=== PATIENT | female | born 1985 | race Caucasian/White ===

== ENCOUNTER 2016-10-22 00:14 | Emergency (ER) | payer MEDICAID ==
[~2016-10-22] VITALS: Ht 180.3 cm; Wt 81.6 kg
[2016-10-22] MEDS ORDERED: IV NORMAL SALINE 1000 ML BAG IV ONE (00:45)
[2016-10-22] MEDS ORDERED: ONDANSETRON 4 MG/2 ML VIAL IV ONE (00:45)
[2016-10-22] MEDS ORDERED: ONDANSETRON 4 MG/2 ML VIAL ONE (00:54)
[2016-10-22 01:00] LABS: HEMOGLOBIN 11.9 g/dL (12.0-16.0); MEAN CORPUSCULAR HEMOGLOBIN 25.7 uug (27.0-31.0); MEAN CORPUSCULAR HGB CONC 32 g/dL (32.0-37.0); MEAN CORPUSCULAR VOLUME 79.8 fL (81.0-99.0); PLATELET COUNT (AUTO) 245 K/uL (150-450); RED BLOOD CELL COUNT(AUTO) 4.63 MIL/uL (4.20-5.40); RED CELL DISTRIBUTION WIDTH 14.3 % (11.5-14.5); WHITE BLOOD COUNT (AUTO) 10.2 K/uL (4.0-11.2)
[2016-10-22 01:05] LABS: CALCIUM 8.8 mg/dL (8.5-10.1); CREATININE 0.8 mg/dL (0.6-1.3); HYPOCHROMASIA 1+; LYMPHOCYTES % (MANUAL) 4 % (20-40); MONOCYTES % (MANUAL) 6 % (2-10); NEUTROPHILS % (MANUAL) 90 % (42-75); PLATELET ESTIMATE ADEQUATE; POTASSIUM 3.3 mmol/L (3.5-5.1)
[2016-10-22 01:06] LABS: ANISOCYTOSIS 1+
[2016-10-22 01:11] LABS: BILIRUBIN,DIRECT 0.2 mg/dL (0.0-0.2); BILIRUBIN,TOTAL 0.9 mg/dL (0.2-1.0); TOTAL PROTEIN, SERUM 7.3 g/dL (6.4-8.2)
[2016-10-22] MEDS ORDERED: METOCLOPRAMIDE HCL 10 MG/2 ML VIAL ONE (01:27)
[2016-10-22] MEDS ORDERED: METOCLOPRAMIDE HCL 10 MG/2 ML VIAL IV ONE (01:30)
[2016-10-22] MEDS ORDERED: POTASSIUM CHLORIDE 20 MEQ TAB.PRT.SR PO ONE (01:45)
[2016-10-22] MEDS ORDERED: POTASSIUM CHLORIDE 20 MEQ TAB.PRT.SR ONE (01:53)
[2016-10-22] MEDS ORDERED: METRONIDAZOLE 500 MG/NS 100 ML PIGGYBACK IV ONE (02:15)
[2016-10-22] MEDS ORDERED: PIPERACILLIN SODIUM/TAZOBACTAM 3.375 G in IV DEXTROSE 5% 50 ML IV ONE (02:15)
--- NOTE | 2016-10-22 02:27 | NUR ---
Patient discharged to home in stable conditon. Written and verbal after care instructions given. Patient verbalizes understanding of instructions.
== END 2016-10-22 02:28 | disposition home or self-care (01) ==
LOC: ER 00:17
DX: R11.2 Nausea with vomiting, unspecified (principal); R10.84 Generalized abdominal pain
CPT/HCPCS: 36415; 80048; 80076; 83690; 84703; 85025; 93005; 96361; 96374; 96375; 99285; A4663; J2405; J2765; J7030

== ENCOUNTER 2017-07-12 18:07 | Emergency (ER) | payer MEDICAID ==
[~2017-07-12] VITALS: Ht 180.3 cm; Wt 74.8 kg
[2017-07-12 19:01] LABS: BASOPHILS # (AUTO) 0.1 K/uL (0.0-8.0); BASOPHILS % (AUTO) 0.7 % (0.0-2.0); EOSINOPHILS # (AUTO) 0.2 K/uL (0.0-0.7); EOSINOPHILS % (AUTO) 2.6 % (0.0-7.0); HEMATOCRIT 36.3 % (31.2-41.9); HEMOGLOBIN 11.9 g/dL (10.9-14.3); LYMPHOCYTES % (AUTO) 26.8 % (20.5-51.5); MEAN CORPUSCULAR HEMOGLOBIN 28.8 uug (24.7-32.8); MEAN CORPUSCULAR HGB CONC 33 g/dL (32.3-35.6); MEAN CORPUSCULAR VOLUME 87.5 fL (75.5-95.3); MONOCYTES # (AUTO) 0.6 K/uL (2.0-10.0); MONOCYTES % (AUTO) 7.6 % (0.0-11.0); NEUTROPHILS # (AUTO) 4.6 K/uL (1.8-8.9); NEUTROPHILS % (AUTO) 62.3 % (38.5-71.5); PLATELET COUNT (AUTO) 255 K/uL (179-408); RED BLOOD CELL COUNT(AUTO) 4.14 MIL/uL (3.63-4.92); WHITE BLOOD COUNT (AUTO) 7.4 K/uL (3.8-11.8)
[2017-07-12] MEDS: IV NORMAL SALINE 1000 ML BAG IV ONE (19:02)
[2017-07-12] MEDS: ONDANSETRON 4 MG/2 ML VIAL IV ONE (19:03)
[2017-07-12] MEDS: HYDROMORPHONE 1 MG/1 ML DISP.SYRIN IV ONE ×2 (19:03→19:51)
[2017-07-12] MEDS ORDERED: ONDANSETRON 4 MG/2 ML VIAL ONE (19:04)
[2017-07-12] MEDS ORDERED: HYDROMORPHONE 4 MG/1 ML DISP.SYRIN ONE (19:05)
--- NOTE | 2017-07-12 19:07 | NUR ---
Pt presents to ED with a c/o lower quadrant abd pain. + nausea. denies vomiting. pain relieved s/p dilaudid. IVF infusing. will continue to monitor.
[2017-07-12 19:11] LABS: CREATININE 0.9 mg/dL (0.6-1.3); POTASSIUM 3.8 mmol/L (3.5-5.1)
[2017-07-12 19:17] LABS: BILIRUBIN,DIRECT 0.1 mg/dL (0.0-0.2); BILIRUBIN,TOTAL 0.3 mg/dL (0.2-1.0); TOTAL PROTEIN, SERUM 6.6 g/dL (6.4-8.2)
[2017-07-12] MEDS ORDERED: MORPHINE SULFATE 4 MG/1 ML DISP.SYRIN IV ONE (19:30)
[2017-07-12] MEDS ORDERED: NORMAL SALINE FLUSH 10 ML DISP.SYRIN ONE (19:37)
[2017-07-12] MEDS ORDERED: IV NORMAL SALINE 250 ML IV ONE (19:37)
[2017-07-12] MEDS ORDERED: IOHEXOL 300MG/ML 100 ML INFUS..BTL ONE (19:37)
--- NOTE | 2017-07-12 19:50 | NUR ---
DR YATES SPOKE WITH PATIENT WILL BE OK HOME.
[2017-07-12] MEDS ORDERED: MORPHINE SULFATE 4 MG/1 ML DISP.SYRIN ONE ×2 (19:53→22:12)
[2017-07-12 20:07] LABS: *BILIRUBIN,URIN NEGATIVE (NEGATIVE); *BLOOD, URINE NEGATIVE (NEGATIVE); *CLARITY,URINE CLEAR (CLEAR); *COLOR,URINE YELLOW (YELLOW); *KETONES,URINE NEGATIVE (NEGATIVE); *PROTEIN,URINE NEGATIVE (NEGATIVE); *UROBILINOGEN,URINE 0.2 E.U./dl (NORMAL); LEUKOCYTE ESTERASE ,URINE NEGATIVE (NEGATIVE); NITRITE, URINE NEGATIVE (NEGATIVE); PH,URINE 7.5 (5.0-8.0); UGLUCOSE NEGATIVE (NEGATIVE)
[2017-07-12 20:16] LABS: MUCUS,URINE FEW /LPF (0-FEW); SQUAMOUS EPITHELIAL CELL,UR FEW /HPF (NONE SEEN); WBC,URINE NONE SEEN /HPF (0-3)
[2017-07-12] MEDS: MORPHINE SULFATE 4 MG/1 ML DISP.SYRIN IV ONE (21:56)
--- NOTE | 2017-07-12 22:06 | NUR ---
Patient discharged to home in stable conditon. Written and verbal after care instructions given. Patient verbalizes understanding of instructions.
== END 2017-07-12 22:18 | disposition home or self-care (01) ==
LOC: ER 18:07
DX: N83.201 Unspecified ovarian cyst, right side (principal); R10.2 Pelvic and perineal pain; Z88.2 Allergy status to sulfonamides; Z98.890 Other specified postprocedural states
CPT/HCPCS: 36415; 76856; 83690; 84703; 85025; A4663; J1170; J2270; J2405; J3490; J7030; J7050; Q9967

== ENCOUNTER 2017-09-07 01:49 | Emergency (ER) | payer MEDICAID ==
[~2017-09-07] VITALS: Ht 177.8 cm; Wt 77.1 kg
[2017-09-07] MEDS ORDERED: HYDR-3326 PO (02:03)
[2017-09-07] MEDS ORDERED: LAMO25TA5 PO (02:03)
[2017-09-07 03:12] LABS: BASOPHILS % (AUTO) 0.9 % (0.0-2.0); EOSINOPHILS # (AUTO) 0.2 K/uL (0.0-0.7); HEMATOCRIT 37.3 % (31.2-41.9); HEMOGLOBIN 12.3 g/dL (10.9-14.3); LYMPHOCYTES # (AUTO) 2.2 K/uL (20.0-40.0); LYMPHOCYTES % (AUTO) 45.6 % (20.5-51.5); MEAN CORPUSCULAR HEMOGLOBIN 29.2 uug (24.7-32.8); MEAN CORPUSCULAR HGB CONC 33 g/dL (32.3-35.6); MEAN CORPUSCULAR VOLUME 88.1 fL (75.5-95.3); MONOCYTES # (AUTO) 0.4 K/uL (2.0-10.0); MONOCYTES % (AUTO) 7.5 % (0.0-11.0); NEUTROPHILS # (AUTO) 2.1 K/uL (1.8-8.9); PLATELET COUNT (AUTO) 249 K/uL (179-408); RED BLOOD CELL COUNT(AUTO) 4.23 MIL/uL (3.63-4.92); WHITE BLOOD COUNT (AUTO) 4.9 K/uL (3.8-11.8)
[2017-09-07 03:23] LABS: CREATININE 0.9 mg/dL (0.6-1.3); POTASSIUM 4.2 mmol/L (3.5-5.1)
[2017-09-07 03:29] LABS: BILIRUBIN,DIRECT 0.1 mg/dL (0.0-0.2); BILIRUBIN,TOTAL 0.2 mg/dL (0.2-1.0); TOTAL PROTEIN, SERUM 7.2 g/dL (6.4-8.2)
[2017-09-07 04:35] LABS: *BILIRUBIN,URIN NEGATIVE (NEGATIVE); *BLOOD, URINE NEGATIVE (NEGATIVE); *CLARITY,URINE CLEAR (CLEAR); *COLOR,URINE YELLOW (YELLOW); *KETONES,URINE NEGATIVE (NEGATIVE); *PROTEIN,URINE NEGATIVE (NEGATIVE); *UROBILINOGEN,URINE 0.2 E.U./dl (NORMAL); LEUKOCYTE ESTERASE ,URINE NEGATIVE (NEGATIVE); NITRITE, URINE NEGATIVE (NEGATIVE); PH,URINE 5.5 (5.0-8.0); UGLUCOSE NEGATIVE (NEGATIVE)
[2017-09-07 04:39] LABS: BACTERIA,URINE NONE SEEN /HPF (NONE SEEN); RBC,URINE NONE SEEN /HPF (0-3); SQUAMOUS EPITHELIAL CELL,UR FEW /HPF (NONE SEEN); WBC,URINE 0-3 /HPF (0-3)
[2017-09-07] MEDS ORDERED: HYDROCODONE/APAP 5-325MG TABLET PO ONE (04:45)
[2017-09-07] MEDS ORDERED: HYDROCODONE/APAP 5-325MG TABLET ONE (04:51)
--- NOTE | 2017-09-07 04:54 | NUR ---
Patient discharged to home in stable conditon. Written and verbal after care instructions given. Patient verbalizes understanding of instructions.
== END 2017-09-07 04:56 | disposition home or self-care (01) ==
LOC: ER 01:54
DX: N83.201 Unspecified ovarian cyst, right side (principal); R10.2 Pelvic and perineal pain; Z88.2 Allergy status to sulfonamides; Z97.5 Presence of (intrauterine) contraceptive device
CPT/HCPCS: 36415; 76856; 85025; A4663

== ENCOUNTER 2018-08-15 00:22 | Emergency (ER) | payer MEDICAID ==
[~2018-08-15] VITALS: Ht 172.7 cm; Wt 90.7 kg
[~2018-08-15 00:22] MED LIST: HYDR-3326 PO; LAMO25TA5 PO
--- NOTE | 2018-08-15 00:32 | NUR ---
Pt ambulates to ER with steady gait with c/o being unable to cloth examiner objects with her left hand x 1 hr. Pt states she was at a bar earlier & felt "stiffness" in her left upper extremity and "it was kind of hard to lift her drinks." Pt states she has hx of weakness in her left arm & leg for 3 years. Pt is alert, oriented x 4. Speech clear. Friend at bedside.
--- NOTE | 2018-08-15 00:33 | NUR ---
Pt admits to drinking tequila earlier prior to arrival.
--- NOTE | 2018-08-15 00:44 | NUR ---
Pt ambulated to restroom in steady gait.
--- NOTE | 2018-08-15 00:49 | NUR ---
Dr. Boo GARNETT MD at bedside for MSE.
--- NOTE | 2018-08-15 01:01 | NUR ---
Pt is speaking inappropriately towards doctor + staff members using profanity. Pt uncooperative.
--- NOTE | 2018-08-15 01:05 | NUR ---
Patient eloped from facility. ER physician notified.
== END 2018-08-15 01:17 | disposition left against medical advice (07) ==
LOC: ER 00:23
DX: F10.10 Alcohol abuse, uncomplicated (principal); Z88.2 Allergy status to sulfonamides; Z79.891 Long term (current) use of opiate analgesic; Z79.899 Other long term (current) drug therapy
CPT/HCPCS: A4663